=== PATIENT | female | born 1975 | race Two or more races ===

== ENCOUNTER 2016-08-05 17:19 | Emergency (ER) | payer MEDICAID ==
[2016-08-05 17:27] VITALS: TEMP 97.7
[2016-08-05 17:35] LABS: COLOR COLORLESS; LEUKOCYTE ESTERASE,URINE 1+ (NEGATIVE); NITRITE,URINE NEGATIVE (NEGATIVE)
[2016-08-05 17:40] LABS: BACTERIA TRACE /hpf (NONE SEEN)
--- NOTE | 2016-08-05 17:52 | EDPHY ---
H & P Stated Complaint: dysuria Time Seen by Provider: 08/05/16 17:36 HPI/ROS: CHIEF COMPLAINT: Pain with urination HISTORY OF PRESENT ILLNESS: This is a 40-year-old insulin dependent diabetic who presents with 1 week of urinary urgency, frequency, and dysuria. She has also noted some hematuria. She has not had flank pain. She denies fever. Her blood sugars have been running somewhat higher than normal. In addition, she reports vaginal itching and a white discharge. She thinks that this is a yeast infection, which she has had before. No history of STD. REVIEW OF SYSTEMS: A ten point review of systems was performed and is negative with the exception of the items mentioned in the HPI. Source: Patient Exam Limitations: No limitations - Personal History LMP (Females 10-55): Extended Cycle BCP/Inj Current Tetanus/Diphtheria Vaccine: Yes Current Tetanus Diphtheria and Acellular Pertussis (TDAP): Yes Tetanus Vaccine Date: <10yrs - Medical/Surgical History Hx Asthma: Yes Hx Chronic Respiratory Disease: No Hx Diabetes: Yes Hx Cardiac Disease: No Hx Renal Disease: No Hx Cirrhosis: No Hx Alcoholism: No Hx HIV/AIDS: No Hx Splenectomy or Spleen Trauma: No Other PMH: Cholecystectomy, asthma, DM, obesity - Social History Smoking Status: Current every day smoker Drug Use: None - Physical Exam Exam: General Appearance: Alert. Vital signs reviewed. Eyes: Pupils equal and round, no conjunctival injection, no discharge. Anicteric. Neck: No lymphadenopathy, supple. Respiratory: Lungs are clear to auscultation; no wheezes, rales, or rhonchi. Cardiovascular: Regular rate and rhythm; no murmur, rub, or gallop. Gastrointestinal: Abdomen is soft and nontender, no masses or organomegaly, bowel sounds normal. Pelvic: There is some mild vulvar erythema, no swelling. Yellow discharge in the vaginal vault. No cervical motion tenderness. Cervix is slightly friable. Cultures taken. Skin: Warm and dry, no rashes on exposed skin, normal color. Back: Nontender to palpation over the thoracolumbar spine. No CVAT. Extremities: No lower extremity edema, no calf tenderness or swelling. Neurological: Alert and oriented. Moving all four extremities easily and equally. Psychiatric: Normal affect. Constitutional: Initial Vital Signs Temperature (C) 36.5 C 08/05/16 17:20 Heart Rate 92 03/18/17 17:20 Respiratory Rate 16 08/05/16 17:20 Blood Pressure 120/91 H 08/05/16 17:20 O2 Sat (%) 97 08/05/16 17:20 O2 Delivery Mode Room Air Allergies/Adverse Reactions: No Known Allergies Allergy (Verified 04/10/16 18:18) Home Medications: Medication Instructions Recorded Insulin Detemir [Levemir] 15 - 20 unit SQ HS #1 btl 01/02/16 Insulin Lispro [humALOG LISPRO 100 15 unit SC DAILY@08 #0 unit 01/02/16 units/ml (*)] Insulin Lispro [humALOG LISPRO 100 15 unit SC DAILY@12 #0 unit 01/02/16 units/ml (*)] Insulin Lispro [humALOG LISPRO 100 15 unit SC DAILY@18 #0 unit 01/02/16 units/ml (*)] Potassium Cl [Klor-Con 20 meq (*)] 20 meq PO BID #60 tab 01/02/16 Advair 100/50 (*) 04/10/16 Albuterol 04/10/16 Cephalexin [Keflex] 500 mg PO TID 5 Days 04/10/16 Cephalexin [Keflex] 500 mg PO BID #9 cap 08/05/16 Medical Decision Making ED Course/Re-evaluation: Urine positive for leukocyte esterase and trace bacteria. 3+ glucose. It is being sent for culture. Pelvic exam revealed yellow discharge without odor. Pelvic exam is not consistent with the diagnosis of yeast infection. I do not suspect STD in STD testing is negative. Swabs did show some bacteria. At this point in time I am choosing to treat for what clinically sounds like a urinary tract infection. There is no evidence of pyelonephritis. I am Starting her on oral antibiotics while we await urine culture. Differential Diagnosis: Considered a differential diagnosis that includes but is not limited to urinary tract infection, pyelonephritis, ureterolithiasis, and vaginal infection including yeast. - Data Points Laboratory Results: 08/05/16 18:50 C.trachomatis RNA (TMA) NEGATIVE (NEGATIVE) N.gonorrhoeae RNA (TMA) NEGATIVE (NEGATIVE) Microbiology Results: MICROBIOLOGY 08/05/16 17:20 Urine,Clean Catch Urine Culture - Preliminary Staphylococcus Aureus Madelin Albicans Five Or More [place] Types Medications Given: Discontinued Medications Cephalexin HCl (Keflex) 500 mg PO EDNOW ONE PRN Reason: Protocol Stop: 08/05/16 20:29 Last Admin: 08/05/16 20:38 Dose: 500 mg Departure - Departure Disposition: Home, Routine, Self-Care Clinical Impression: Urinary tract infection Qualifiers: Urinary tract infection type: acute cystitis Hematuria presence: without hematuria Qualified Code(s): N30.00 - Acute cystitis without hematuria Condition: Good Instructions: Urinary Tract Infection in Women (ED) Additional Instructions: Take the Keflex, antibiotic, twice daily for five days. You received the first dose here tonight, so your next dose is due tomorrow morning. See Beata Jon early next week for a recheck. Return if you develop fever, back pain, any new or concerning symptoms. Referrals: Beata Jon PA [Primary Care Provider] - As per Instructions Prescriptions: Cephalexin [Keflex] 500 mg PO BID #9 cap
[2016-08-05] MEDS ORDERED: CEPHALEXIN 500 MG CAP PO ONE (20:28)
[2016-08-05 20:41] VITALS: BP 131/85; PULSE 78; RESP 12; O2SAT 95
[2016-08-07 13:17] LABS: CHLAMYDIA AMPLIFICATION GENPRB NEGATIVE (NEGATIVE)
== END 2016-08-05 20:40 | disposition home or self-care (01) ==
DX: N30.00 Acute cystitis without hematuria (principal); B95.61 Methicillin susceptible Staphylococcus aureus infection as the cause of diseases classified elsewhere; B37.9 Candidiasis, unspecified; J45.909 Unspecified asthma, uncomplicated; E11.9 Type 2 diabetes mellitus without complications; F17.200 Nicotine dependence, unspecified, uncomplicated; Z79.4 Long term (current) use of insulin

== ENCOUNTER 2017-01-05 19:09 | Emergency (ER) | payer MEDICAID ==
[2017-01-05 19:14] VITALS: BP 113/78; PULSE 106; RESP 18; TEMP 97.9; O2SAT 95
[2017-01-05] MEDS ORDERED: PHENAZOPYRIDINE HCL 200 MG TAB PO ONE (19:20)
--- NOTE | 2017-01-05 19:22 | EDPHY ---
H & P Stated Complaint: rt flank pain /dysuria Time Seen by Provider: 01/05/17 19:14 HPI/ROS: CHIEF COMPLAINT: Flank pain and dysuria HISTORY OF PRESENT ILLNESS: Patient is a 41-year-old female who comes to the emergency department complaining of bilateral flank pain and dysuria that began yesterday. She also states that her urine is cloudy. She suspects urinary tract infection. She has had similar before. She denies risk of . No vaginal bleeding or discharge. No abdominal pain or tenderness. No history of kidney stones. No fevers. REVIEW OF SYSTEMS: Constitutional: denies: chills, fever, recent illness, recent injury EENTM: denies: blurred vision, double vision, nose congestion Respiratory: denies: cough, shortness of breath Cardiac: denies: chest pain, irregular heart rate, lightheadedness, palpitations Gastrointestinal/Abdominal: denies: abdominal pain, diarrhea, nausea, vomiting, blood streaked stools Genitourinary: See HPI Musculoskeletal: denies: joint pain, muscle pain Skin: denies: lesions, rash, jaundice, bruising Neurological: denies: headache, numbness, paresthesia, tingling, dizziness, weakness Hematologic/Lymphatic: denies: blood clots, easy bleeding, easy bruising Immunologic/allergic: denies: HIV/AIDS, transplant EXAM: GENERAL: Well-appearing, obese and in no acute distress. HEAD: Atraumatic, normocephalic. EYES: Pupils equal round and reactive to light, extraocular movements intact, sclera anicteric, conjunctiva are normal. ENT: TMs normal, nares patent, oropharynx clear without exudates. Moist mucous membranes. NECK: Normal range of motion, supple without lymphadenopathy or JVD. LUNGS: Breath sounds clear to auscultation bilaterally and equal. No wheezes rales or rhonchi. HEART: Regular rate and rhythm without murmurs, rubs or gallops. ABDOMEN: Soft, nontender, normoactive bowel sounds. No guarding, no rebound. No masses appreciated. BACK: No CVA tenderness, no spinal tenderness, step-offs or deformities EXTREMITIES: Normal range of motion, no pitting or edema. No clubbing or cyanosis. NEUROLOGICAL: Cranial nerves II through XII grossly intact. Normal speech, normal gait. 5/5 strength, normal movement in all extremities, normal sensation PSYCH: Normal mood, normal affect. SKIN: Warm, dry, normal turgor, no visible rashes or lesions. Source: Patient Exam Limitations: No limitations - Personal History LMP (Females 10-55): IUD In Place Current Tetanus/Diphtheria Vaccine: Yes Tetanus Vaccine Date: <10yrs - Medical/Surgical History Hx Asthma: Yes Hx Chronic Respiratory Disease: No Hx Diabetes: Yes Hx Cardiac Disease: No Hx Renal Disease: No Hx Cirrhosis: No Hx Alcoholism: No Hx HIV/AIDS: No Hx Splenectomy or Spleen Trauma: No Other PMH: Cholecystectomy, asthma, DM, obesity - Family History Significant Family History: No pertinent family hx - Social History Smoking Status: Current every day smoker Alcohol Use: Sober Drug Use: None Constitutional: Initial Vital Signs Temperature (C) 36.6 C 01/05/17 19:10 Heart Rate 106 H 01/05/17 19:10 Respiratory Rate 18 01/05/17 19:10 Blood Pressure 113/78 01/05/17 19:10 O2 Sat (%) 95 01/05/17 19:10 O2 Delivery Mode Room Air Allergies/Adverse Reactions: No Known Allergies Allergy (Verified 04/10/16 18:18) Home Medications: Medication Instructions Recorded Insulin Lispro [humALOG LISPRO 100 15 unit SC DAILY@08 #0 unit 01/02/16 units/ml (*)] Insulin Lispro [humALOG LISPRO 100 15 unit SC DAILY@12 #0 unit 01/02/16 units/ml (*)] Insulin Lispro [humALOG LISPRO 100 15 unit SC DAILY@18 #0 unit 01/02/16 units/ml (*)] Advair 100/50 (*) 04/10/16 Albuterol 04/10/16 Cephalexin [Keflex] 500 mg PO TID #21 cap 01/05/17 Phenazopyridine HCl [Pyridium] 200 mg PO TID #6 tab 01/05/17 Medical Decision Making ED Course/Re-evaluation: The patient's urinalysis is positive. I will start her on Keflex. She states that this worked well for her last time. Also prescribed her Pyridium. She understands and agrees with this plan. She declines further workup or testing at this time. We discussed indications for returning. Differential Diagnosis: Partial list of the Differential diagnosis considered include but were not limited to; urinary tract infection, pyelonephritis, kidney stone and although unlikely based on the history and physical exam, I also considered ovarian cyst , , DKA. I discussed these differential diagnoses and the plan with the patient as well as the usual and expected course. The patient understands that the diagnosis is provisional and that in medicine we are not always correct and that further workup is often warranted. Usual and customary warnings were given. All of the patient's questions were answered. The patient was instructed to return to the emergency department should the symptoms at all worsen or return, otherwise to followup with the physician as we discussed. - Data Points Laboratory Results: 01/05/17 01/05/17 19:45 19:36 POC Glucose 237 mg/dL H mg/dL (70-100) Urine Color YELLOW Urine Appearance HAZY Urine pH 5.0 (5.0-7.5) Ur Specific [place] > 1.035 H (1.002-1.030) Urine Protein NEGATIVE (NEGATIVE) Urine Ketones NEGATIVE (NEGATIVE) Urine Blood NEGATIVE (NEGATIVE) Urine Nitrate NEGATIVE (NEGATIVE) Urine Bilirubin NEGATIVE (NEGATIVE) Urine Urobilinogen NEGATIVE EU EU (0.2-1.0) Ur Leukocyte Esterase 1+ H (NEGATIVE) Urine RBC 5-10 /hpf H /hpf (0-3) Urine WBC 25-50 /hpf H /hpf (0-3) Ur Epithelial Cells 1+ /lpf /lpf (NONE-1+) Urine Bacteria TRACE /hpf H /hpf (NONE SEEN) Urine Mucus TRACE /lpf /lpf (NONE-1+) Urine Glucose 3+ H (NEGATIVE) Medications Given: Discontinued Medications Phenazopyridine HCl (Pyridium) 200 mg PO EDNOW ONE Stop: 01/05/17 19:21 Last Admin: 01/05/17 19:31 Dose: 200 mg Point of Care Test Results: 01/05/17 19:36 POC Glucose 237 H Departure - Departure Disposition: Home, Routine, Self-Care Clinical Impression: Urinary tract infection Qualifiers: Urinary tract infection type: acute cystitis Hematuria presence: without hematuria Qualified Code(s): N30.00 - Acute cystitis without hematuria Condition: Fair Instructions: Urinary Tract Infection in Women (ED) Referrals: Beata Jon PA [Primary Care Provider] - As per Instructions Prescriptions: Cephalexin [Keflex] 500 mg PO TID #21 cap Phenazopyridine HCl [Pyridium] 200 mg PO TID #6 tab
[2017-01-05 19:54] LABS: COLOR YELLOW; LEUKOCYTE ESTERASE,URINE 1+ (NEGATIVE); NITRITE,URINE NEGATIVE (NEGATIVE)
[2017-01-05 19:59] LABS: BACTERIA TRACE /hpf (NONE SEEN); MUCUS TRACE /lpf (NONE-1+); WBC,URINE 25-50 /hpf (0-3)
[2017-01-05] MEDS ORDERED: CEPHALEXIN 500 MG CAP PO ONE (20:01)
== END 2017-01-05 20:10 | disposition home or self-care (01) ==
DX: N30.00 Acute cystitis without hematuria (principal); J45.909 Unspecified asthma, uncomplicated; E11.9 Type 2 diabetes mellitus without complications; F17.200 Nicotine dependence, unspecified, uncomplicated; B96.20 Unspecified Escherichia coli [E. coli] as the cause of diseases classified elsewhere; Z79.4 Long term (current) use of insulin; Z90.49 Acquired absence of other specified parts of digestive tract

== ENCOUNTER 2017-02-01 17:21 | Emergency (ER) | payer MEDICAID ==
[2017-02-01 17:35] VITALS: TEMP 98.8
[2017-02-01 18:03] LABS: COLOR PALE YELLOW; LEUKOCYTE ESTERASE,URINE 2+ (NEGATIVE); NITRITE,URINE NEGATIVE (NEGATIVE)
[2017-02-01 18:20] LABS: YEAST PRESENT /hpf (NONE SEEN)
[2017-02-01] MEDS ORDERED: NS 1,000 ML IV ONE ×2 (18:45)
[2017-02-01 18:50] LABS: % IMMATURE GRANULYOCYTES 0.4 % (0.0-1.1); ABSOLUTE IMMATURE GRANULOCYTES 0.03 10^3/uL (0.00-0.10); ADD DIFF? NO; ADD MORPH? NO; ADD SCAN? NO; ATYPICAL LYMPHOCYTE FLAG 0 (0-99); FRAGMENT RBC FLAG 0 (0-99); HEMATOCRIT 40.4 % (38.0-47.0); HEMOGLOBIN 13.8 g/dL (12.6-16.3); LEFT SHIFT FLG 0 (0-99); LIPEMIA HEMOLYSIS FLAG 90 (0-99); MEAN CELL HEMOGLOBIN 27.4 pg (27.9-34.1); MEAN CELL HEMOGLOBIN CONCENTR. 34.2 g/dL (32.4-36.7); MEAN CELL VOLUME 80.3 fL (81.5-99.8); MEAN PLATELET VOLUME 10.7 fL (8.7-11.7); PLATELET CLUMPS FLAG 0 (0-99); PLATELET COUNT 244 10^3/uL (150-400); RED BLOOD CELL COUNT 5.03 10^6/uL (4.18-5.33); RED CELL DISTRIBUTION WIDTH 13.1 % (11.5-15.2)
[2017-02-01 19:02] LABS: ANION GAP 12 mEq/L (8-16); CALCIUM 8.7 mg/dL (8.5-10.4); CARBON DIOXIDE 22 mEq/l (22-31); CHLORIDE 95 mEq/L (97-110); CREATININE 0.7 mg/dL (0.6-1.0); GLOMERULAR FILTRATION RATE > 60; MAGNESIUM 1.8 mg/dL (1.6-2.3); POTASSIUM 4.5 mEq/L (3.5-5.2); SODIUM 129 mEq/L (134-144)
[2017-02-01 19:09] LABS: GLUCOSE 602 mg/dL (70-100)
[2017-02-01] MEDS ORDERED: INSULIN REGULAR HUMAN 100 UNIT/ML IVP ONE (19:13)
--- NOTE | 2017-02-01 19:18 | EDPHY ---
H & P Stated Complaint: Frequent urination. Burning when urinating, and recent UTI. Time Seen by Provider: 02/01/17 19:15 HPI/ROS: HPI: This is a 41-year-old female who presents with Chief Complaint: Vaginal discharge Location: Vaginal Quality: Discharge Duration: Months Signs and Symptoms: No vaginal bleeding, no abdominal pain, no nausea, + polyuria, no dysuria, no vomiting Timing: Daily Severity: Moderate Context: Patient has a history type 2 diabetes controlled with oral in insulin medications. She reports that her blood sugars have been running "high" for some time and admits to noncompliance on a diabetic diet. She is sexually active. Jojo IUD Modifying Factors: Comment: ROS: Constitutional: No fever, no chills, no weight loss Eyes: No blurred vision Respiratory: No shortness of breath, no cough Cardiovascular: No chest pain Gastrointestinal: No nausea, no vomiting no diarrhea Genitourinary: No dysuria Extremities: No myalgias Neurologic: No weakness, no numbness Skin: No rashes Hematologic: No bruising, no bleeding Source: Patient Exam Limitations: No limitations - Personal History LMP (Females 10-55): IUD In Place Current Tetanus Diphtheria and Acellular Pertussis (TDAP): Yes Tetanus Vaccine Date: <10yrs - Medical/Surgical History Hx Asthma: Yes Hx Chronic Respiratory Disease: No Hx Diabetes: Yes Hx Cardiac Disease: No Hx Renal Disease: No Hx Cirrhosis: No Hx Alcoholism: No Hx HIV/AIDS: No Hx Splenectomy or Spleen Trauma: No Other PMH: Cholecystectomy, asthma, DM, obesity - Social History Smoking Status: Former smoker - Physical Exam Exam: CONSTITUTIONAL: Obese female, awake and alert, no obvious distress HEENT: Atraumatic and normocephalic, PERRL, EOMI. Tympanic membranes clear. . Oropharynx clear, no exudate and moist pink mucosa. Airway patent. No lymphadenopathy. No meningismus. Cardiovascular: Normal S1/S2, tachycardia, regular rhythm, without murmur rub or gallop. PULMONARY/CHEST: Symmetrical and nontender. Clear to auscultation bilaterally Good air movement. No accessory muscle usage. ABDOMEN: Soft, nondistended, nontender, no rebound, no guarding, no peritoneal signs, no masses or organomegaly. No CVAT. PELVIC: normal external genitalia, normal cervix, cervical os was closed, no cervical motion tenderness, no adnexal mass, thick white curd like discharge, no bleeding. 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 EXTREMITIES: 2/2 pulses, no deformities, no clubbing, no cyanosis or edema. NEUROLOGICAL: no focal neuro deficits. GCS 15. SKIN: Warm and dry, no erythema. no rash. Good capillary refill. Constitutional: Initial Vital Signs Heart Rate 102 H 02/01/17 17:30 Respiratory Rate 19 02/01/17 17:30 Blood Pressure 131/87 H 02/01/17 17:30 O2 Sat (%) 95 02/01/17 17:30 O2 Delivery Mode Room Air Allergies/Adverse Reactions: No Known Allergies Allergy (Verified 04/10/16 18:18) Home Medications: Medication Instructions Recorded Insulin Lispro [humALOG LISPRO 100 15 unit SC DAILY@08 #0 unit 01/02/16 units/ml (*)] Insulin Lispro [humALOG LISPRO 100 15 unit SC DAILY@12 #0 unit 01/02/16 units/ml (*)] Insulin Lispro [humALOG LISPRO 100 15 unit SC DAILY@18 #0 unit 01/02/16 units/ml (*)] Advair 100/50 (*) 04/10/16 Albuterol 04/10/16 Cephalexin [Keflex] 500 mg PO TID #21 cap 01/05/17 Phenazopyridine HCl [Pyridium] 200 mg PO TID #6 tab 01/05/17 Fluconazole [Diflucan (*)] 150 mg PO ONCE #1 tab 02/01/17 Miconazole Nitrate [Miconazole 7] 100 mg VG DAILY #7 supp.vag 02/01/17 Medical Decision Making ED Course/Re-evaluation: Gonorrhea, chlamydia, bacterial vaginosis cultures ordered Serum glucose 602 upon arrival; labs and IV fluids ordered Normal gap and bicarb; no signs of DKA Given 10 units of IV regular insulin and 2 L normal saline. Sodium 129 noted UA shows yeast; given p.o. Diflucan 150 mg; sent for urine culture; 2+ LE, no bacteria repeat BS 281 Advised to be compliant on diabetic diet; monitoring blood sugars and close follow-up with primary care provider. She is to follow up with OBGYN Differential Diagnosis: Abdominal pain in a female including but not limited to ovarian cyst, pelvic inflammatory disease, ovarian torsion, urinary tract infection, and appendicitis. - Data Points Laboratory Results: Laboratory Results 02/01/17 18:42 02/01/17 18:42 02/01/17 02/01/17 02/01/17 18:42 18:42 17:35 WBC 7.84 10^3/uL 10^3/uL (3.80-9.50) RBC 5.03 10^6/uL 10^6/uL (4.18-5.33) Hgb 13.8 g/dL g/dL (12.6-16.3) Hct 40.4 % % (38.0-47.0) MCV 80.3 fL L fL (81.5-99.8) MCH 27.4 pg L pg (27.9-34.1) MCHC 34.2 g/dL g/dL (32.4-36.7) RDW 13.1 % % (11.5-15.2) Plt Count 244 10^3/uL 10^3/uL (150-400) MPV 10.7 fL fL (8.7-11.7) Neut % (Auto) 64.2 % % (39.3-74.2) Lymph % (Auto) 29.1 % % (15.0-45.0) [place] % (Auto) 5.5 % % (4.5-13.0) Eos % (Auto) 0.3 % L % (0.6-7.6) Baso % (Auto) 0.5 % % (0.3-1.7) Nucleat RBC Rel Count 0.0 % % (0.0-0.2) Absolute Neuts (auto) 5.04 10^3/uL 10^3/uL (1.70-6.50) Absolute Lymphs (auto) 2.28 10^3/uL 10^3/uL (1.00-3.00) Absolute Monos (auto) 0.43 10^3/uL 10^3/uL (0.30-0.80) Absolute Eos (auto) 0.02 10^3/uL L 10^3/uL (0.03-0.40) Absolute Basos (auto) 0.04 10^3/uL 10^3/uL (0.02-0.10) Absolute Nucleated RBC 0.00 10^3/uL 10^3/uL (0-0.01) Immature Gran % 0.4 % % (0.0-1.1) Immature Gran # 0.03 10^3/uL 10^3/uL (0.00-0.10) Sodium 129 mEq/L L mEq/L (134-144) Potassium 4.5 mEq/L mEq/L (3.5-5.2) Chloride 95 mEq/L L mEq/L (97-110) Carbon Dioxide 22 mEq/l mEq/l (22-31) Anion Gap 12 mEq/L mEq/L (8-16) BUN 15 mg/dL mg/dL (7-23) Creatinine 0.7 mg/dL mg/dL (0.6-1.0) Estimated GFR > 60 Glucose 602 mg/dL H* mg/dL (70-100) Calcium 8.7 mg/dL mg/dL (8.5-10.4) Phosphorus 3.9 mg/dL mg/dL (2.5-4.5) Magnesium 1.8 mg/dL mg/dL (1.6-2.3) Beta-Hydroxybutyrate Pending Urine Color PALE YELLOW Urine Appearance CLEAR Urine pH 6.0 (5.0-7.5) Ur Specific [place] 1.032 H (1.002-1.030) Urine Protein NEGATIVE (NEGATIVE) Urine Ketones NEGATIVE (NEGATIVE) Urine Blood NEGATIVE (NEGATIVE) Urine Nitrate NEGATIVE (NEGATIVE) Urine Bilirubin NEGATIVE (NEGATIVE) Urine Urobilinogen NEGATIVE EU EU (0.2-1.0) Ur Leukocyte Esterase 2+ H (NEGATIVE) Urine RBC 5-10 /hpf H /hpf (0-3) Urine WBC 1-3 /hpf /hpf (0-3) Ur Epithelial Cells TRACE /lpf /lpf (NONE-1+) Urine Yeast PRESENT /hpf /hpf (NONE SEEN) Urine Glucose 3+ H (NEGATIVE) Medications Given: Discontinued Medications Fluconazole (Diflucan) 150 mg PO ONCE ONE Stop: 02/01/17 19:20 Last Admin: 02/01/17 19:40 Dose: 150 mg Sodium Chloride (Ns) 1,000 mls @ 0 mls/hr IV ONCE ONE; Wide Open PRN Reason: Protocol Stop: 02/01/17 18:46 Last Admin: 02/01/17 19:12 Dose: 1,000 mls Sodium Chloride (Ns) 1,000 mls @ 0 mls/hr IV ONCE ONE; Wide Open PRN Reason: Protocol Stop: 02/01/17 18:46 Last Admin: 02/01/17 19:15 Dose: 1,000 mls Insulin Human Regular (Humulin R) 10 unit IVP EDNOW ONE Stop: 02/01/17 19:14 Last Admin: 02/01/17 19:21 Dose: 10 units Departure - Departure Disposition: Home, Routine, Self-Care Clinical Impression: Candidiasis of vagina Hyperglycemia due to type 2 diabetes mellitus 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 Follow pelvic rest until symptoms resolved. The complain on her diabetic diet and taking her diabetic medications. Check your blood sugars daily. Follow up with her primary care provider to monitor blood sugars. Follow up with OBGYN in 1-2 weeks. Referrals: Elizabeth Galvan MD [Medical Doctor] - 5-7 days, call for appt. Beata Jon PA [Primary Care Provider] - 5-7 days, call for appt. Prescriptions: Fluconazole [Diflucan (*)] 150 mg PO ONCE #1 tab Miconazole Nitrate [Miconazole 7] 100 mg VG DAILY #7 supp.vag
[2017-02-01] MEDS ORDERED: FLUCONAZOLE 150 MG TAB PO ONE (19:19)
[2017-02-01 20:10] VITALS: BP 141/79; PULSE 95; RESP 14; O2SAT 98
[2017-02-02 13:46] LABS: CHLAMYDIA AMPLIFICATION GENPRB NEGATIVE (NEGATIVE)
== END 2017-02-01 21:30 | disposition home or self-care (01) ==
DX: B37.3 Candidiasis of vulva and vagina (principal); E11.65 Type 2 diabetes mellitus with hyperglycemia; J45.909 Unspecified asthma, uncomplicated; E86.9 Volume depletion, unspecified; Z79.4 Long term (current) use of insulin; Z87.891 Personal history of nicotine dependence
CPT/HCPCS: 96374; J1815

== ENCOUNTER 2017-05-09 14:45 | Emergency (ER) | payer MEDICAID ==
--- NOTE | 2017-05-09 15:50 | EDPHY ---
H & P Time Seen by Provider: 05/09/17 14:58 HPI/ROS: CHIEF COMPLAINT: Headache, painful rash HISTORY OF PRESENT ILLNESS: 41-year-old female presents to the emergency department with painful rash to her right side of her neck and right scalp extending down to the right anterior chest that began yesterday. The patient initially noted some pain in tingling in the right side of her scalp which is now since progressed to down her neck and down to the anterior aspect of her chest. No fevers or chills. No chest pain or difficulty breathing. She has never had this in the past. She states that is very painful describes it as a burning, tingling sensation. No visual complaints. No pain in her face. She is having pain in her right ear. No symptoms in the left side. No abdominal pain or vomiting. No other rash. REVIEW OF SYSTEMS: Constitutional: No fever, no chills. Eyes: No double or blurry vision. ENT: No sore throat. Respiratory: No cough, no shortness of breath. Cardiac: No chest pain. Gastrointestinal: No abdominal pain, vomiting or diarrhea. Genitourinary: No dysuria. Musculoskeletal: No neck or back pain. Skin: As above. Neurological: headache. Past Medical/Surgical History: Insulin-dependent diabetic, asthma, smoker Social History: Single and lives in [place] Smoking Status: Current every day smoker Physical Exam: General Appearance: Alert, no distress. Afebrile. Eyes: Pupils equal and round. Extraocular motions are all intact. ENT: Mouth: Mucous membranes moist. Respiratory: No wheezing, rhonchi, or rales, lungs are clear to auscultation. Cardiovascular: Regular rate and rhythm. Gastrointestinal: Abdomen is soft and nontender, no masses, no rebound or guarding, bowel sounds normal. Neurological: Alert and oriented x 3, cranial nerves II through XII grossly intact Skin: The patient has erythematous patches with vesicular lesions present from the right nape of the neck extending down into the right shoulder and right anterior aspect of her chest. It does not cross midline. It appears consistent with herpes zoster. There is no evidence of cellulitis. Musculoskeletal: Nontender to palpate along the cervical, thoracic or lumbar spine. Neck is supple. Extremities: Full range of motion and no peripheral edema. Psychiatric: Patient is oriented X 3, there is no agitation. Constitutional: Initial Vital Signs Temperature (C) 36.6 C 05/09/17 14:51 Heart Rate 96 05/09/17 14:51 Respiratory Rate 16 05/09/17 14:51 Blood Pressure 129/96 H 05/09/17 14:51 O2 Sat (%) 97 05/09/17 14:51 O2 Delivery Mode Room Air Allergies/Adverse Reactions: No Known Allergies Allergy (Verified 05/09/17 14:48) Home Medications: Medication Instructions Recorded Insulin Lispro [humALOG LISPRO 100 15 unit SC DAILY@08 #0 unit 01/02/16 units/ml (*)] Advair 100/50 (*) 04/10/16 Albuterol 04/10/16 Metformin HCl 05/09/17 Valacyclovir HCl [Valtrex] 1,000 mg PO TID #21 tab 05/09/17 Medical Decision Making ED Course/Re-evaluation: Clinically I think this patient has herpes zoster. She will be treated with Valtrex. Her symptoms began yesterday. I encouraged her to start this medication as soon as possible. She was instructed to return to the emergency department sooner if she developed worsening pain, shortness of breath or any other concerns. She will be treated with oral Valtrex was given primary care referral to [facility]. Differential Diagnosis: Including but not limited to herpes zoster, cellulitis, sepsis Departure - Departure Disposition: Home, Routine, Self-Care Clinical Impression: Herpes zoster Qualifiers: Herpes zoster complications: without complications Qualified Code(s): B02.9 - Zoster without complications Condition: Good Instructions: Shingles (ED) Additional Instructions: Valtrex as directed for 7 days. Referrals: Beata Jon PA [Primary Care Provider] - As per Instructions Stand Alone Forms: Work Excuse Prescriptions: Valacyclovir HCl [Valtrex] 1,000 mg PO TID #21 tab
[2017-05-09 15:56] VITALS: BP 130/78; PULSE 95; RESP 18; TEMP 98.6; O2SAT 95
== END 2017-05-09 15:56 | disposition home or self-care (01) ==
DX: B02.9 Zoster without complications (principal); J45.909 Unspecified asthma, uncomplicated; F17.200 Nicotine dependence, unspecified, uncomplicated; E11.9 Type 2 diabetes mellitus without complications; Z79.4 Long term (current) use of insulin; Z79.84 Long term (current) use of oral hypoglycemic drugs

== ENCOUNTER 2018-01-19 22:06 | Emergency (ER) | payer MEDICAID ==
[2018-01-19 22:14] VITALS: BP 118/84
--- NOTE | 2018-01-19 22:24 | EDPHY ---
H & P Time Seen by Provider: 01/19/18 22:16 HPI/ROS: CHIEF COMPLAINT: Itching neck hair loss HISTORY OF PRESENT ILLNESS: 42-year-old female diagnosed with zoster to her neck in May 2017 complaining of continued rash in hair loss in same location ever since. She has not been applying any or ointment or cream to this area. No tenderness. Highly pruritic and she has been excoriating the area. No discharge. PRIMARY CARE PROVIDER: REVIEW OF SYSTEMS: 10 systems reviewed and are negative with exception of illness mentioned in the history of present illness PHYSICAL EXAM (Prior to examination, patient consented to physical exam, hands were washed and my usual and customary physical exam procedures followed) 1) GENERAL: Well-developed, well-nourished, alert and oriented. Appears to be in no acute distress. 2) HEAD: Normocephalic 3) HEENT: sclera anicteric 4) LUNGS: Breathing comfortably. 5) SKIN: Left posterior neck area of excoriation hair loss. No tenderness. No fetid odor. No erythema. No signs of infection. Smoking Status: Current every day smoker Constitutional: Initial Vital Signs Temperature (C) 37.0 C 01/19/18 22:09 Heart Rate 77 01/19/18 22:09 Respiratory Rate 18 01/19/18 22:09 Blood Pressure 118/84 H 01/19/18 22:09 O2 Sat (%) 96 01/19/18 22:09 O2 Delivery Mode Room Air Allergies/Adverse Reactions: No Known Allergies Allergy (Verified 05/09/17 14:48) Home Medications: Medication Instructions Recorded Insulin Lispro [humALOG LISPRO 100 15 unit SC DAILY@08 #0 unit 01/02/16 units/ml (*)] Advair 100/50 (*) 04/10/16 Albuterol 04/10/16 Metformin HCl 05/09/17 Valacyclovir HCl [Valtrex] 1,000 mg PO TID #21 tab 05/09/17 Hydrocortisone [Cortisone] 1 savi TP BID #30 cream..g. 01/19/18 MDM/Departure - MDM ED Course/Re-evaluation: Patient I discussed the multiple possible etiologies for her itching and hair loss. Her clinical exam findings are not consistent with cellulitis or zoster. There is excoriation at this area. I recommended topical cortisone ointment, follow up with PCP. Cutaneous malignancy not ruled out. I saw this patient independently based on established practice protocols. Care of patient under supervision of secondary supervising physician Dr Hook - Mark Anthony Disposition: Home, Routine, Self-Care Clinical Impression: Skin rash Condition: Good Instructions: Acute Rash (ED) Additional Instructions: Please follow-up after you apply this medication. Prescriptions: Hydrocortisone [Cortisone] 1 savi TP BID #30 cream..g. Referrals: Beata Jon PA [Primary Care Provider] - 5-7 days, call for appt.
== END 2018-01-19 22:31 | disposition home or self-care (01) ==
DX: R21 Rash and other nonspecific skin eruption (principal); F17.200 Nicotine dependence, unspecified, uncomplicated

== ENCOUNTER 2018-01-26 14:25 | Emergency (ER) | payer MEDICAID ==
--- NOTE | 2018-01-26 16:11 | EDPHY ---
H & P Stated Complaint: lower abdominal pain, frequency starting 3 days ago Time Seen by Provider: 01/26/18 15:45 HPI/ROS: CHIEF COMPLAINT: Urinary frequency, pelvic pain HISTORY OF PRESENT ILLNESS: 42-year-old female with diabetes presents with urinary frequency and pelvic pain. Onset of generalized pelvic pain 2 days ago. The pain is mild and increases after urinating. Associated with urinary frequency and excessive thirst. Taking insulin as prescribed. Not checking her blood sugar at home. No fever or vomiting. REVIEW OF SYSTEMS: complete 10 point ROS negative except at noted in the HPI - Personal History LMP (Females 10-55): IUD In Place Current Tetanus/Diphtheria Vaccine: Yes Current Tetanus Diphtheria and Acellular Pertussis (TDAP): Yes Tetanus Vaccine Date: <10yrs - Medical/Surgical History Hx Asthma: Yes Hx Chronic Respiratory Disease: No Hx Diabetes: Yes Hx Cardiac Disease: No Hx Renal Disease: No Hx Cirrhosis: No Hx Alcoholism: No Hx HIV/AIDS: No Hx Splenectomy or Spleen Trauma: No Other PMH: hx: Cholecystectomy, asthma, DM, obesity, shingles - Social History Smoking Status: Current every day smoker Alcohol Use: Sober - Physical Exam Exam: General Appearance: Alert, pleasant, nontoxic Eyes: Pupils equal and round, no conjunctival pallor or injection ENT, Mouth: Mucous membranes moist Neck: Normal inspection Respiratory: Lungs are clear to auscultation Cardiovascular: Regular rate and rhythm Gastrointestinal: Abdomen is soft, mild suprapubic tenderness Neurological: A&O, nonfocal, normal gait Skin: Warm and dry, no rash Extremities: Normal inspection Psychiatric: Mood and affect normal Constitutional: Initial Vital Signs Temperature (C) 36.8 C 01/26/18 14:29 Heart Rate 93 01/26/18 14:29 Respiratory Rate 18 01/26/18 14:29 Blood Pressure 112/82 H 01/26/18 14:29 O2 Sat (%) 95 01/26/18 14:29 O2 Delivery Mode Room Air Allergies/Adverse Reactions: No Known Allergies Allergy (Verified 01/26/18 14:28) Home Medications: Medication Instructions Recorded Insulin Lispro [humALOG LISPRO 100 15 unit SC DAILY@08 #0 unit 01/02/16 units/ml (*)] Advair 100/50 (*) 04/10/16 Albuterol 04/10/16 Metformin HCl 05/09/17 Hydrocortisone [Cortisone] 1 savi TP BID #30 cream..g. 01/19/18 Cephalexin [Keflex (*)] 500 mg PO BID #10 cap 01/26/18 Medical Decision Making - Diagnostics Imaging Results: Pelvic sono: negative Imaging: Discussed imaging studies w/ faculty i on call medical assistant Radiologist ED Course/Re-evaluation: This patient presents with excessive thirst and polyuria. Urinalysis reveals glucosuria. Blood sugar is over 500. Insulin 10 units regular given. Had a prolonged discussion with the patient. Recently, she stopped checking her blood sugar at home. She has also had some dietary indiscretion. I do not feel that this patient needs to be admitted because of hyperglycemia. She does not have DKA and is not significantly dehydrated. She may have a urinary tract infection, urine culture sent. Will treat with Keflex, pending urine culture. Pelvic sono negative; no evidence of ectopic , ovarian torsion, ruptured cyst. Doubt appy, given normal WBC, no RLQ tenderness or fever. Warning signs discussed. ED CM helped arrange a f/u appt with PCP for this pt. Differential Diagnosis: Differential diagnosis includes though it is not limited to ectopic , ovarian cyst, ovarian torsion, PID, UTI, appendicitis. - Data Points Laboratory Results: Laboratory Results 01/26/18 16:15 01/26/18 16:15 Microbiology Results: MICROBIOLOGY 01/26/18 15:09 Urine,Clean Catch Urine Culture - Preliminary Staphylococcus Epidermidis Three [place] Types Medications Given: Discontinued Medications Sodium Chloride (Ns) 1,000 mls @ 0 mls/hr IV EDNOW ONE; Wide Open PRN Reason: Protocol Stop: 01/26/18 16:49 Last Admin: 01/26/18 16:51 Dose: 1,000 mls Insulin Human Regular (Humulin R) 10 unit IVP EDNOW ONE Stop: 01/26/18 16:53 Last Admin: 01/26/18 16:58 Dose: 10 units Point of Care Test Results: Chemistry 01/26/18 17:36 POC Glucose 535 mg/dL H* mg/dL (70-100) Departure - Departure Disposition: Home, Routine, Self-Care Clinical Impression: Pelvic pain in female UTI (urinary tract infection) Qualifiers: Urinary tract infection type: acute cystitis Hematuria presence: without hematuria Qualified Code(s): N30.00 - Acute cystitis without hematuria Hyperglycemia due to type 2 diabetes mellitus Qualifiers: Diabetes mellitus residential insulin use: with residential use Qualified Code(s): E11.65 - Type 2 diabetes mellitus with hyperglycemia Condition: Good Instructions: Cephalexin (By mouth), Urinary Tract Infection in Women (ED), Pelvic Pain (ED) Additional Instructions: Check and record your blood sugar twice daily. Use a sliding scale insulin for elevated blood sugar. Avoid simple sugars. Follow-up with your physician on Sunday. Referrals: Beata Jon PA [Primary Care Provider] - 2-3 days, call for appt. Prescriptions: Cephalexin [Keflex (*)] 500 mg PO BID #10 cap
[2018-01-26 16:39] LABS: PLATELET COUNT 270 10^3/uL (150-400)
[2018-01-26] MEDS ORDERED: NS 1,000 ML IV ONE (16:48)
[2018-01-26] MEDS ORDERED: INSULIN REGULAR HUMAN 100 UNIT/ML UNIT IVP ONE (16:52)
[2018-01-26 18:43] VITALS: BP 148/75
--- NOTE | 2018-01-27 10:38 | ASMTCMCOM ---
CM Note CM Note Notes: Late Entry from 01/26/18 due to [employer] being down: Pt presented to the ED through triage for UTI symptoms. Pt has a history of insulin dependent diabetes and her BGL in the ED was 593. Pt was in the ED on 01/19/18 as well and seen for neck itching; pt recommended to follow-up w/her PCP Beata Jon at [facility]. Spoke w/pt and she states she hasnt been able to follow up because she works all the time. Pt states she almost lost her apartment because her work decreased her hours. We discussed the importance of her following up. Pt has a middle aged child and DIL at bedside. Pt is receiving food stamps and has been in contact w/[facility] but has not completed all the requirements in order to get help w/rent. Pt provided a [facility] pamphlet and she gave permission for Lorie Arthur RN w/[facility], to reach out to her (CM e-mailed referral to Lorie). Pt states her cell # ([phone]) is turned off right now but to call her on her DIL [facility] cell phone # ([phone]). Pt also regularly checks her e-mail at [email or web address]. ? This CM to follow-up on Sunday w/PC and see how else pt can be assisted w/follow-up and managing her diabetes. Date Signed: 01/27/2018 10:37 AM Electronically Signed By:Corine Kelly RN
--- NOTE | 2018-01-28 15:06 | ASMTCMCOM ---
CM Note CM Note Notes: Followed up with [facility]; spoke w/Paola who states that they already reached out to the patient today and she has an appt today 4pm to further discuss her DM management. Paola states that their team has even done home visits in the past and that pt always visits with a Behavioral Health Practitioner when she has an appt. Pt no-shows a lot to appts. CM available for further assistance if needed. Date Signed: 01/28/2018 03:05 PM Electronically Signed By:Corine Kelly RN
== END 2018-01-26 18:50 | disposition home or self-care (01) ==
DX: R10.2 Pelvic and perineal pain (principal); N30.00 Acute cystitis without hematuria; E11.65 Type 2 diabetes mellitus with hyperglycemia; E86.9 Volume depletion, unspecified; E66.9 Obesity, unspecified; F17.200 Nicotine dependence, unspecified, uncomplicated; Z79.4 Long term (current) use of insulin
CPT/HCPCS: 96374; J1815

== ENCOUNTER 2018-03-04 20:21 | Emergency (ER) | payer MEDICAID ==
[2018-03-04 20:27] VITALS: BP 116/72
--- NOTE | 2018-03-04 20:44 | EDPHY ---
H & P Stated Complaint: cough, sore throat Time Seen by Provider: 03/04/18 20:30 HPI/ROS: CHIEF COMPLAINT: Cough, sore throat HISTORY OF PRESENT ILLNESS: 42-year-old female with diabetes and asthma presents with cough and sore throat. Onset of sore throat and runny nose 2 days ago. Sore throat is moderate and increases with swallowing. Associated with cough and wheezing. She used her nebulizer just prior to arrival because of shortness of breath. Breathing now is back to normal. She usually takes prednisone when she has an upper respiratory infection. The prednisone does not seem to affect her blood sugar. Tolerating oral fluids well. No fever. REVIEW OF SYSTEMS: complete 10 point ROS reviewed and is negative except for the noted elements in the HPI - Personal History LMP (Females 10-55): IUD In Place Tetanus Vaccine Date: <10yrs - Medical/Surgical History Hx Asthma: Yes Hx Chronic Respiratory Disease: No Hx Diabetes: Yes Hx Cardiac Disease: No Hx Renal Disease: No Hx Cirrhosis: No Hx Alcoholism: No Hx HIV/AIDS: No Hx Splenectomy or Spleen Trauma: No Other PMH: hx: Cholecystectomy, asthma, DM, obesity, shingles - Social History Smoking Status: Former smoker Alcohol Use: Sober - Physical Exam Exam: General Appearance: Alert, pleasant Eyes: Pupils equal and round, no conjunctival injection ENT, Mouth: Pharyngeal erythema, no swelling or exudate; Mucous membranes moist Neck: Normal inspection Respiratory: Lungs are clear to auscultation, no wheezing Cardiovascular: Regular tachycardia, HR 100 Neurological: A&O, nonfocal, normal gait Skin: Warm and dry Extremities: Normal inspection Psychiatric: Mood and affect normal Constitutional: Initial Vital Signs Temperature (C) 37.1 C 03/04/18 20:24 Heart Rate 116 H 03/04/18 20:24 Respiratory Rate 20 03/04/18 20:24 Blood Pressure 116/72 03/04/18 20:24 O2 Sat (%) 99 03/04/18 20:24 O2 Delivery Mode Room Air Allergies/Adverse Reactions: No Known Allergies Allergy (Verified 03/04/18 20:23) Home Medications: Medication Instructions Recorded Insulin Lispro [humALOG LISPRO 100 15 unit SC DAILY@08 #0 unit 01/02/16 units/ml (*)] Advair 100/50 (*) 04/10/16 Albuterol 04/10/16 Metformin HCl 12/20/17 Hydrocortisone [Cortisone] 1 savi TP BID #30 cream..g. 01/19/18 Cephalexin [Keflex (*)] 500 mg PO BID #10 cap 01/26/18 predniSONE 40 mg PO DAILY #8 tab 03/04/18 Medical Decision Making ED Course/Re-evaluation: Oxygen saturation is normal and no bronchospasm on exam. Tachycardia present on triage VS because of recent nebulized breathing treatment. Prednisone 60 mg orally given. Antibiotics not indicated. Departure - Departure Disposition: Home, Routine, Self-Care Clinical Impression: Upper respiratory infection Qualifiers: URI type: unspecified viral URI Qualified Code(s): J06.9 - Acute upper respiratory infection, unspecified Condition: Good Instructions: Upper Respiratory Infection (ED) Additional Instructions: Drink plenty of fluids. Tylenol 650mg every 4 hours as needed for fever and body aches. Referrals: Beata Jon PA [Primary Care Provider] - As per Instructions Prescriptions: predniSONE 40 mg PO DAILY #8 tab
[2018-03-04] MEDS ORDERED: predniSONE 20 MG TAB PO ONE (20:50)
== END 2018-03-04 21:04 | disposition home or self-care (01) ==
DX: J06.9 Acute upper respiratory infection, unspecified (principal); J45.909 Unspecified asthma, uncomplicated; E11.9 Type 2 diabetes mellitus without complications; Z87.891 Personal history of nicotine dependence
CPT/HCPCS: J7512

== ENCOUNTER 2018-09-30 13:22 | Emergency (ER) | payer MEDICAID ==
[2018-09-30 13:31] VITALS: BP 106/77
--- NOTE | 2018-09-30 13:46 | EDPHY ---
H & P Stated Complaint: Pt c/o L groin cyst, ruptured yest c white discharge Time Seen by Provider: 09/30/18 13:46 HPI/ROS: CHIEF COMPLAINT: Left groin abscess HISTORY OF PRESENT ILLNESS: The patient presents to the ED with an abscess in her left groin which has been present for the past several days. She has a prior history of pilonidal cyst which have required drainage. The patient denies any fever. She denies any lower extremity numbness or weakness. She has moderate pain and swelling noted to the left inguinal area. She has noticed a scant amount of drainage. REVIEW OF SYSTEMS: A comprehensive 10 point review of systems is otherwise negative aside from elements mentioned in the history of present illness. Source: Patient Exam Limitations: No limitations - Personal History Current Tetanus/Diphtheria Vaccine: Yes Tetanus Vaccine Date: <10yrs - Medical/Surgical History Hx Asthma: Yes Hx Chronic Respiratory Disease: No Hx Diabetes: Yes Hx Cardiac Disease: No Hx Renal Disease: No Hx Cirrhosis: No Hx Alcoholism: No Hx HIV/AIDS: No Hx Splenectomy or Spleen Trauma: No Other PMH: hx: Cholecystectomy, asthma, DM, obesity, shingles - Social History Smoking Status: Former smoker - Physical Exam Exam: General Appearance: Alert, no distress Eyes: Pupils equal and round no pallor or injection ENT, Mouth: Mucous membranes moist Respiratory: There are no retractions, lungs are clear to auscultation Cardiovascular: Regular rate and rhythm Gastrointestinal: Abdomen is soft and nontender, no masses, bowel sounds normal Neurological: 5/5 strength all 4 extremities Skin: Small subcutaneous abscess noted in the medial left groin Musculoskeletal: Normal range of motion bilateral lower extremities. No clinical evidence of septic arthritis Extremities: symmetrical, full range of motion Constitutional: Initial Vital Signs Temperature (C) 36.7 C 09/30/18 13:28 Heart Rate 92 09/30/18 13:28 Respiratory Rate 16 09/30/18 13:28 Blood Pressure 106/77 09/30/18 13:28 O2 Sat (%) 95 09/30/18 13:28 O2 Delivery Mode Room Air Allergies/Adverse Reactions: No Known Allergies Allergy (Verified 09/30/18 13:28) Home Medications: Medication Instructions Recorded Insulin Lispro [humALOG LISPRO 100 15 unit SC DAILY@08 #0 unit 01/02/16 units/ml (*)] Advair 100/50 (*) 11/21/16 Albuterol 04/10/16 Metformin HCl 05/09/17 Hydrocortisone [Cortisone] 1 savi TP BID #30 cream..g. 01/19/18 Cephalexin [Keflex (*)] 500 mg PO BID #10 cap 01/26/18 predniSONE 40 mg PO DAILY #8 tab 03/04/18 Sulfamethox/Tmp 800/160 mg 1 tab PO BID #20 tab 09/30/18 [Bactrim DS] Medical Decision Making Procedures: Procedure: Abscess drainage. The patient's abscess was located on the left groin. Risks, benefits, alternatives discussed with the patient and consent obtained. The abscess was incised with a #11 blade and purulent drainage was expressed. The wound was irrigated and packed. The patient tolerated the procedure well. The procedure was performed by myself. ED Course/Re-evaluation: The patient presents to the ED with a subcutaneous abscess noted in her left groin area. The patient had the area anesthetized by myself. I made a small incision and expressed pus. The wound was packed. The patient will be started on antibiotics and discharged home with customary aftercare instructions and return precautions. Plan for packing removal in 48 hr. The patient has been instructed to do this on her own at home. Departure - Departure Disposition: Home, Routine, Self-Care Clinical Impression: Abscess of groin, left Condition: Good Instructions: Abscess (ED) Additional Instructions: 1. Begin antibiotics as directed. 2. Return to the ED for increasing pain, redness, swelling or fever. 3. Please remove the packing material in 48 hr. Referrals: Beata Jon PA [Primary Care Provider] - As per Instructions
== END 2018-09-30 14:43 | disposition home or self-care (01) ==
PROC: 0H9JXZZ Drainage of Left Upper Leg Skin, External Approach (ICD-10-PCS; principal; 2018-09-30)
DX: L02.214 Cutaneous abscess of groin (principal)